=== PATIENT | female | born 1960 | race Caucasian/White ===

== ENCOUNTER → 2021-12-26 | Outpatient (CLI) | payer OTHER | END | disposition home or self-care (01) | LOC: LAB 07:17 → LAB SHORT 07:17 → PLD 07:17 | DX: L57.0 Actinic keratosis (principal) | CPT/HCPCS: 88305 ==

== ENCOUNTER 2023-10-02 06:11 | Day surgery (SDC) | payer OTHER ==
[~2023-10-02] VITALS: Ht 170.2 cm; Wt 76.8 kg
[2023-10-02] VITALS (17 sets, daily range): BP systolic 81–152; BP diastolic 53–71
[2023-10-02] MEDS ORDERED: Lactated Ringer's 1,000 ML IV SCH ×2 (06:15→09:30)
[2023-10-02] MEDS ORDERED: Acetaminophen 500 MG Tab PO SCH ×2 (06:15→16:00)
[2023-10-02] MEDS ORDERED: Ropivacaine 0.5% HCl/Pf 123.125 MG,EPINEPHrine HCL 0.25 MG,Ketorolac Tromethamine 15 MG... INFIL SCH (06:15)
[2023-10-02] MEDS ORDERED: OxyCODONE HCL 10 MG TABCR PO SCH (06:15)
[2023-10-02] MEDS ORDERED: CeFAZolin Sodium 2,000 MG in NS 100 ML IV SCH ×2 (06:15→16:00)
[2023-10-02] MEDS ORDERED: Chlorhexidine Mouth Care 15 ML UDC MT SCH (06:15)
[2023-10-02] MEDS ORDERED: Tranexamic Acid 100 ML IV SCH (06:20)
--- NOTE | 2023-10-02 06:40 | NUR ---
History, Chart, Medications and Allergies reviewed before start of procedure. Patient states she left her dentures at home.
--- NOTE | 2023-10-02 06:58 | NUR ---
PATIENT GAVE GLASSES TO FOR SAFE KEEPING.
--- NOTE | 2023-10-02 07:18 | NUR ---
Patient confirms NPO status and agrees with scheduled surgery.
[2023-10-02] MEDS ORDERED: Midazolam HCl 1MG / ML 2ML Vial IV SCH (07:20)
[2023-10-02] MEDS ORDERED: propofoL 100 ML IV ONE (07:24)
[2023-10-02] MEDS ORDERED: Ondansetron HCl 2 MG / ML 2ML Vial IV PRN (09:25)
[2023-10-02] MEDS ORDERED: Metoclopramide HCl 5MG / ML 2ML Vial IV PRN (09:25)
[2023-10-02] MEDS ORDERED: Magnesium Hydroxide Conc 10 ML UDC PO PRN (09:30)
[2023-10-02] MEDS ORDERED: DiphenhydrAMINE HCL 25 MG Cap PO PRN (09:30)
[2023-10-02] MEDS ORDERED: HYDROmorphone HCl/Pf 1MG SYR IV PRN (09:30)
[2023-10-02] MEDS ORDERED: OxyCODONE HCL 5 MG TAB PO PRN ×2 (09:35)
[2023-10-02] MEDS ORDERED: Bisacodyl 10 MG Supp PR PRN (09:35)
[2023-10-02] MEDS ORDERED: Prochlorperazine Edisylate 10 mg Vial IV PRN (09:35)
[2023-10-02] MEDS ORDERED: Promethazine HCl 25 MG Tab PO PRN (09:35)
--- NOTE | 2023-10-02 10:10 | NUR ---
ARRIVAL TO UNIT PT ARRIVED TO UNIT ON BED. A&0 x4. VSS. PT DENIES PAIN AT THIS TIME, S/P SPINAL, NUMB @ APPROX L2. IV FLUIDS INFUSING PER EMAR. AQUACEL TO L HIP C/D/I. POLAR PACK IN USE. AWAITING FIRST POST-OP VOID & AMBULATION. FAMILY AT BEDSIDE. ORIENTED TO ROOM, CALL LIGHT IN REACH, BED IN LOWEST POSITION, NO STATED NEEDS AT THIS TIME.
[2023-10-02] MEDS ORDERED: Ketorolac Tromethamine 15mg Vial IV SCH (12:00)
--- NOTE | 2023-10-02 17:37 | NUR ---
SHIFT SUMMARY POD 0 L CONSUELO. NO ACUTE CHANGES THIS SHIFT. VSS. TOLERATING ORALS, PT REPORTS DISINTEREST IN FOOD SERVED IN HOSPITAL, DENIES N/V. PT RECEIVED SPINAL, PT REPORTS NUMBNESS TO L THIGH, PT UNABLE TO HOLD THIGH INDEPENDENTLY - AWAITING FIRST POST-OP AMBULATION. PT REQUIRED STRAIGHT x1 R/T RETENTION. IV FLUIDS/ABX INFUSING PER EMAR. PT REPORTS PAIN TOLERABLE, MEDICATED PER EMAR/ POLAR PACK IN USE. AQUACEL DRESSING C/D/I. ANTICIPATED TO WORK WITH PHYSCIAL THERAPY & D/C IN AM. CALL LIGHT IN REACH, BED IN LOWEST POSITION, WILL REPORT TO DEBBIE RN.
[2023-10-02] MEDS ORDERED: Docusate Sodium 100 MG Cap PO SCH (21:00)
--- NOTE | 2023-10-02 21:33 | NUR ---
FAMILY COMMUNICATION WHILE ASSESSING THE PATIENT, HER SPOUCE WAS IN THE ROOM. HE INFORMED ME THAT THE PATIENT TENDS TO HAVE "HEMORRHAGES" WITH EVERY SINGLE SURGERY, AND USUALLY REQUIRES NO LESS THAN 2 UNITS OF BLOOD BEFORE SHE DISCHARGES. REPORTS THAT SHE HAS HAD UPWARDS OF 3-5 UNITS OF BLOOD WITH HER PREVIOUS FACIAL SURGERY. HE WANTED TO COMMMUNICATE THIS WITH MEDICAL STAFF AND I INFORMED HIM THAT I WOULD PASS THIS INFORMATION ON.
[2023-10-03 03:48] VITALS: BP 138/75
--- NOTE | 2023-10-03 04:24 | NUR ---
SHIFT SUMMARY POD1 L CONSUELO. SENSATION AND CIRCULATION REMAIN INTACT. DRESSING IS C/D/I. VSS, SOFT BP'S NOTED AT THE BEGINNING OF SHIFT, IVF INFUSING PER EMAR. PT HAS SLEPT ON AND OFF T/O THE NIGHT. PT HAS REPORTED NO PAIN, ONLY TAKING SCHEDULED MEDICATIONS. PT HAS BEEN ABLE TO AMBULATE TO THE BATHROOM MULTIPLE TIMES W/MIN ASSISTANCE. TOLLERATING PO INTAKE W/O N/V. NO ACUTE EVENTS NOTED T/O THE NIGHT. PLAN FOR PHYSICAL THERAPY AND DISCHRGE TODAY.
[2023-10-03 05:32] LABS: BASOPHILS ABSOLUTE AUTO 0.02 K/mm3 (0.00-0.23); BASOPHILS PERCENT AUTO 0 % (0-2); EOSINOPHILS ABSOLUTE AUTO 0.02 K/mm3 (0.00-0.68); EOSINOPHILS PERCENT AUTO 0 % (0-6); Hematocrit 27.5 % (33.0-51.0); Hemoglobin 8.9 g/dL (11.5-16.0); IMMATURE GRAN ABSOLUTE AUTO 0.02 K/mm3 (0.00-0.10); IMMATURE GRAN PERCENT AUTO 0 % (0-1); LYMPHOCYTES ABSOLUTE AUTO 1.15 K/mm3 (0.84-5.20); LYMPHOCYTES PERCENT AUTO 15 % (21-46); MONOCYTES ABSOLUTE AUTO 0.49 K/mm3 (0.16-1.47); MONOCYTES PERCENT AUTO 6 % (4-13); Mean Corpuscular HGB 31.2 pg (26.0-34.0); Mean Corpuscular HGB Conc 32.4 g/dL (31.5-36.5); Mean Corpuscular Volume 97 fL (80-100); Mean Platelet Volume 10.8 fL (9.1-12.4); NEUTROPHILS ABSOLUTE AUTO 6.16 K/mm3 (1.96-9.15); NEUTROPHILS PERCENT AUTO 78 % (41-73); Platelet Count 94 K/mm3 (150-400); RDW Coefficient Variation 12.8 % (11.7-14.2); RDW Standard Deviation 45.3 fL (35.1-46.3); Red Blood Cell Count 2.85 M/mm3 (3.80-5.20); White Blood Cell Count 7.86 K/mm3 (4.00-11.30)
[2023-10-03 05:58] LABS: Bun/Creatinine Ratio 20.5 (12.0-20.0); Calcium, Blood 8.6 mg/dL (8.5-10.1); Creatinine, Blood 0.73 mg/dL (0.40-1.00); Magnesium, Blood 2.4 mg/dL (1.6-2.4); Potassium, Blood 4.6 mmol/L (3.5-5.5)
[2023-10-03 07:36] VITALS: BP 115/62
[2023-10-03] MEDS ORDERED: ASPI81CH PO (07:49)
[2023-10-03] MEDS ORDERED: Aspirin 81 MG Chew PO SCH (09:00)
--- NOTE | 2023-10-03 11:02 | NUR ---
DISCHARGE SUMMARY POD1 L CONSUELO, A/OX4, VSS, TOLERATING PO, PAIN WELL MANAGED, AMBULATING WITH SBA, VOIDING INDEPENDENTLY, PROVIDED EXTRA DRESSINGS TO GO HOME WITH, IV REMOVED JUST BEFORE DISCHARGE, AQUACELL DRESSING C/D/I. DISCUSSED DISCHARGE INSTRUCTIONS WITH HER INCLUDING HOME CARE, MEDICATIONS, AND FOLLOW UP APPOINTMENTS. ESCORTED OUT VIA WC TO PRIVATE AUTO TO GO HOME WITH ALL PERSONAL POSSESSIONS.
== END 2023-10-03 10:09 | disposition home or self-care (01) ==
LOC: ORSCMMR 06:11 → ORD 07:30 → SURS 09:59 → ORSCMMR 10-03 10:09
PROVIDERS: Orthopaedic Surgery
PROC: 0SRB0JZ Replacement of Left Hip Joint with Synthetic Substitute, Open Approach (ICD-10-PCS; principal; 2023-10-02 07:30)
DX: M16.12 Unilateral primary osteoarthritis, left hip (principal); Z87.891 Personal history of nicotine dependence
CPT/HCPCS: 36415; 72170; 80048; 83735; 85025; 97110; 97116; 97161; 97530; A9270; C1776; J0171; J0690; J0735; J1885; J2250; J2704; J2795; J7120

== ENCOUNTER → 2024-06-17 | Outpatient (CLI) | payer OTHER ==
[~2024-06-17] MED LIST: ASPI81CH PO
[2024-06-17 15:34] LABS: BASOPHILS ABSOLUTE AUTO 0.07 K/mm3 (0.00-0.23); BASOPHILS PERCENT AUTO 1 % (0-2); EOSINOPHILS ABSOLUTE AUTO 0.24 K/mm3 (0.00-0.68); EOSINOPHILS PERCENT AUTO 4 % (0-6); Hematocrit 40.8 % (33.0-51.0); Hemoglobin 13.3 g/dL (11.5-16.0); IMMATURE GRAN ABSOLUTE AUTO 0.01 K/mm3 (0.00-0.10); IMMATURE GRAN PERCENT AUTO 0 % (0-1); LYMPHOCYTES ABSOLUTE AUTO 1.31 K/mm3 (0.84-5.20); LYMPHOCYTES PERCENT AUTO 24 % (21-46); MONOCYTES ABSOLUTE AUTO 0.28 K/mm3 (0.16-1.47); MONOCYTES PERCENT AUTO 5 % (4-13); Mean Corpuscular HGB 30.8 pg (26.0-34.0); Mean Corpuscular HGB Conc 32.6 g/dL (31.5-36.5); Mean Corpuscular Volume 94 fL (80-100); NEUTROPHILS ABSOLUTE AUTO 3.67 K/mm3 (1.96-9.15); NEUTROPHILS PERCENT AUTO 66 % (41-73); RDW Coefficient Variation 13.2 % (11.7-14.2); RDW Standard Deviation 45.9 fL (35.1-46.3); Red Blood Cell Count 4.32 M/mm3 (3.80-5.20); White Blood Cell Count 5.58 K/mm3 (4.00-11.30)
[2024-06-17 15:46] LABS: Albumin, Blood 4.1 g/dL (3.4-5.0); Albumin/Globulin Ratio 1.1 (0.8-1.8); Bilirubin, Total 0.7 mg/dL (0.1-1.0); Bun/Creatinine Ratio 19.2 (12.0-20.0); Calcium, Blood 9.7 mg/dL (8.5-10.1); Creatinine, Blood 0.99 mg/dL (0.40-1.00); Globulin, Blood 3.9 g/dL (2.2-4.0)
[2024-06-17 15:56] LABS: Platelet Count 126 K/mm3 (150-400)
== END | disposition home or self-care (01) ==
LOC: LAB 15:31 → LAB SHORT 15:31
PROVIDERS: Chiropractor
DX: I87.2 Venous insufficiency (chronic) (peripheral) (principal)
CPT/HCPCS: 80053; 85025; 85379; 85651